=== PATIENT | male | born 1960 | race Two or more races ===

== ENCOUNTER 2019-10-26 09:24 | Emergency (ER) | payer OTHER ==
[~2019-10-26] VITALS: Ht 152.4 cm; Wt 64.4 kg
[2019-10-26 10:22] VITALS: BP 140/86
== END 2019-10-26 11:29 | disposition home or self-care (01) ==
LOC: ER 09:24
DX: S61.411A Laceration without foreign body of right hand, initial encounter (principal); M25.531 Pain in right wrist; W54.0XXA Bitten by dog, initial encounter; Y93.89 Activity, other specified; Y92.89 Other specified places as the place of occurrence of the external cause; Y99.8 Other external cause status
CPT/HCPCS: 12002; 73110; 73130

== ENCOUNTER 2024-01-10 16:09 | Emergency (ER) | payer OTHER, MEDICAID ==
[~2024-01-10] VITALS: Ht 154.9 cm; Wt 68.1 kg
[2024-01-10] MEDS ORDERED: BACIOIN15 TOP (16:24)
[2024-01-10] MEDS ORDERED: IBUP-1454 PO (16:24)
[2024-01-10] MEDS ORDERED: AUG875T PO (16:24)
[2024-01-10] MEDS: NEOMYCIN-BACITRACIN-POLYM 15GM TOP OINT TOP ONE (16:30)
[2024-01-10] MEDS: TETANUS-DIPTH-ACEL PERTUSSIS 0.5ML SYR Tdap IM ONE (17:09)
[2024-01-10] MEDS: KETOROLAC TROMETH 60MG/2ML VIAL IM ONE (17:10)
[2024-01-10] MEDS: AMOXICILLIN/CLAVUL 875 MG TAB PO ONE (17:10)
[2024-01-10 17:15] VITALS: BP 132/85; PULSE 78; RESP 17; TEMP 98.7; O2SAT 95
== END 2024-01-10 17:40 | disposition home or self-care (01) ==
LOC: ER 16:09
DX: S51.851A Open bite of right forearm, initial encounter (principal); W54.0XXA Bitten by dog, initial encounter; Y93.89 Activity, other specified; Y92.89 Other specified places as the place of occurrence of the external cause; Y99.8 Other external cause status
CPT/HCPCS: 90471; 90715; 96372; 99284; J1885

== ENCOUNTER 2024-12-07 07:26 | Outpatient (CLI) | payer OTHER, MEDICAID ==
[2024-12-07] VITALS (8 sets, daily range): BP systolic 111–138; BP diastolic 77–94; PULSE 65–78; RESP 18–25; TEMP 97.6; O2SAT 95–97
[~2024-12-07 07:26] MED LIST: AUG875T PO; BACIOIN15 TOP; IBUP-1454 PO
[2024-12-07] MEDS ORDERED: LIDOCAINE 2%HCL (LOCAL ANESTH.) INJ 10ml MDV ONE (08:15)
[2024-12-07] MEDS ORDERED: fentaNYL CITRATE 100 MCG/2 ML VL IV ONE (08:15)
[2024-12-07] MEDS ORDERED: MIDAZOLAM HCL 2MG/2ML 2ml VIAL (1mg/ml) IV ONE (08:15)
[2024-12-07] MEDS ORDERED: fentaNYL CITRATE 100 MCG/2 ML VL ONE (08:21)
[2024-12-07] MEDS ORDERED: MIDAZOLAM HCL 2MG/2ML 2ml VIAL (1mg/ml) ONE (08:21)
--- NOTE | 2024-12-07 09:50 | DVH ---
INDICATION: POST LUNG BX IMMEDIATE TECHNIQUE: Frontal view of the chest. COMPARISON: None FINDINGS: Right upper lobe masslike opacity. No pneumothorax.. The heart and mediastinal contours are grossly unremarkable. There is no evidence of pleural disease. . The bony structures of the chest are in tact without fracture. IMPRESSION: 1. Right upper lobe masslike opacity. No pneumothorax..
--- NOTE | 2024-12-07 12:26 | DVH ---
INDICATION: 2 HOUR POST LUNG BX TECHNIQUE: Frontal view of the chest. COMPARISON: XY CHEST PORTABLE on DOS: 12/07/24, XY CHEST PORTABLE on DOS: 12/07/24 FINDINGS: Right upper lobe masslike opacity. No pneumothorax.. The heart and mediastinal contours are grossly unremarkable. There is no evidence of pleural disease. . The bony structures of the chest are in tact without fracture. IMPRESSION: 1. Right upper lobe masslike opacity. No pneumothorax..
--- NOTE | 2024-12-07 15:14 | DVH ---
CT CHEST WITHOUT CONTRAST, CT CT GUIDANCE FOR NEEDLE PLACEME, HISTORY: Lung Mass PROCEDURE: Informed consent was obtained. The patient was placed supine on the CT scanner. A limited localization CT scan of the lung was obtained. The skin overlying the lesion was prepped with chlorhe xidine which was allowed to dry and draped in sterile fashion. Time out was performed. The skin and s oft tissues were infiltrated with Xylocaine. With intermittent CT guidance, a 19 gauge Temno outer co axial guiding needle was advanced into the right lung nodule. The needle position was confirmed with CT scan. 2 core biopsies were obtained using Temno inner 20 gauge biopsy needle. The specimens were s ent in formalin to pathology for analysis. A visceral blood patch was applied as the needle was withd rawn the needle was withdrawn, and post procedural CT obtained through the biopsy region. No immediat e complication was identified was noted, and patient was transport to recovery in stable condition wi thout respiratory distress. DLP = 1258mGy-cm. FINDINGS: Limited CT scan demonstrates an approximately soft tissue mass in the right upper lobe and the biopsy needle within the margin of the lung mass. No significant post biopsy hemorrhage or pneumo thorax is noted. IMPRESSION/PLAN: CT guided lung biopsy. Pathology pending. Bedrest until cleared by IR following post-biopsy CXRs.
== END 2024-12-07 17:00 | disposition home or self-care (01) ==
LOC: XYW 07:26
DX: R91.8 Other nonspecific abnormal finding of lung field (principal); C34.11 Malignant neoplasm of upper lobe, right bronchus or lung; R09.89 Other specified symptoms and signs involving the circulatory and respiratory systems; Z79.899 Other long term (current) drug therapy
CPT/HCPCS: 32408; 71045; 88305; 88342; J2003; 10005; 71250; 77012; J2250